=== PATIENT | female | born 1940 | race Two or more races ===

== ENCOUNTER 2023-01-05 12:51 | Inpatient (IN) | payer MEDICARE, OTHER ==
[2023-01-05] VITALS (26 sets, daily range): BP systolic 90–131; BP diastolic 40–87
[~2023-01-05] VITALS: Ht 157.5 cm; Wt 67.6 kg
[2023-01-05] MEDS ORDERED: DILTIAZEM HCL 50 MG IV ONE (13:12)
--- NOTE | 2023-01-05 13:20 | NUR ---
PARUL LOCKETT From Clinic "SOB/BLE edema xweeks. Rapid AF rate 158 BS-110
--- NOTE | 2023-01-05 13:23 | NUR ---
covid swab taken
--- NOTE | 2023-01-05 13:24 | NUR ---
blood sample otbaiend sent to lab
[2023-01-05 13:25] LABS: BASOPHILS % (AUTO) 0.5 % (0.0-2.0); HEMATOCRIT 33 % (33-45); HEMOGLOBIN 10.6 g/dL (11.5-14.8); LYMPHOCYTES # (AUTO) 0.8 K/uL (0.8-4.8); LYMPHOCYTES % (AUTO) 9.7 % (20.0-44.0); MEAN CORPUSCULAR HGB CONC 33 g/dl (31.0-36.0); MEAN CORPUSCULAR VOLUME 88 fL (82-100); MONOCYTES # (AUTO) 0.7 K/uL (0.1-1.30); MONOCYTES % (AUTO) 9.1 % (2.0-12.0); NEUTROPHILS # (AUTO) 6.4 K/uL (1.8-8.9); NEUTROPHILS % (AUTO) 79.7 % (43.0-81.0); PLATELET COUNT (AUTO) 349 K/uL (150-450); RED BLOOD CELL COUNT(AUTO) 3.72 MIL/uL (4.0-5.2)
[2023-01-05] MEDS ORDERED: DILTIAZEM HCL 25 MG IV IV ONE (13:30)
--- NOTE | 2023-01-05 13:42 | NUR ---
анна shields [phone] daughter
[2023-01-05 13:47] LABS: CALCIUM, SERUM 8.6 mg/dL (8.5-10.1); CARBON DIOXIDE 21 mmol/L (21-32); CHLORIDE 105 mmol/L (98-107); CREATININE 1.6 mg/dL (0.6-1.3); GLUCOSE 111 mg/dL (74-106); POTASSIUM 5.1 mmol/L (3.5-5.1); SODIUM SERUM 137 mmol/L (136-145); UREA NITROGEN, BLOOD 23 mg/dL (7-18)
--- NOTE | 2023-01-05 13:51 | NUR ---
CALLED NURSING SUP REGARDING PT BED
--- NOTE | 2023-01-05 13:57 | NUR ---
ROOM 254
[2023-01-05] MEDS ORDERED: AMIODARONE 450 MG in IV D5W 250 ML IV ONE (14:00)
[2023-01-05] MEDS ORDERED: AMIODARONE 150 MG in IV D5W 100 ML IV ONE (14:00)
[2023-01-05 14:04] LABS: ALANINE AMINOTRANSFERASE 23 U/L (12-78); ALBUMIN 3.2 g/dL (3.4-5.0); ALKALINE PHOSPHATASE 139 U/L (46-116); ASPARTATE AMINOTRANSFERASE 61 U/L (15-37); BILIRUBIN,DIRECT 0.5 mg/dL (0.0-0.2); BILIRUBIN,TOTAL 0.9 mg/dL (0.2-1.0); TOTAL PROTEIN, SERUM 7.1 g/dL (6.4-8.2)
[2023-01-05] MEDS ORDERED: FUROSEMIDE 40 MG/4 ML VIAL ONE (14:20)
[2023-01-05] MEDS ORDERED: FUROSEMIDE 40 MG/4 ML VIAL IV ONE (14:30)
[2023-01-05] MEDS ORDERED: PIPERACILLIN /TAZOBACTAM 3.375 G in IV D5W 50 ML IV ONE (14:30)
--- NOTE | 2023-01-05 14:33 | NUR ---
awaiting for ER MD to present the patient to the admitting MD .
[2023-01-05] MEDS ORDERED: ATOR10TA PO (15:13)
[2023-01-05] MEDS ORDERED: LOSA100T31 PO (15:13)
[2023-01-05] MEDS ORDERED: METF-442 PO (15:13)
[2023-01-05] MEDS ORDERED: GLIM4TAB37 PO (15:13)
[2023-01-05] MEDS ORDERED: LORA10TA7 PO (15:13)
[2023-01-05] MEDS ORDERED: AMLO-213 PO (15:13)
--- NOTE | 2023-01-05 15:23 | NUR ---
ok to go upstairs per admitting Max PANDYA
[2023-01-05] MEDS ORDERED: ZOLPIDEM TARTRATE 5 MG TABLET PO PRN (15:30)
[2023-01-05] MEDS ORDERED: MAG HYDROX/AL HYDROX/SIMETH 30 ML UDC PO PRN (15:30)
[2023-01-05] MEDS ORDERED: ENOXAPARIN SODIUM 30 MG/0.3 ML DISP.SYRIN SQ SCH (15:30)
[2023-01-05] MEDS ORDERED: Z GUARD REMEDY 4 OZ OINT TP PRN (15:30)
[2023-01-05] MEDS ORDERED: MAGNESIUM HYDROXIDE 30 ML UDC PO PRN (15:30)
[2023-01-05] MEDS ORDERED: ONDANSETRON HCL/PF 4 MG/2 ML VIAL IVP PRN (15:30)
--- NOTE | 2023-01-05 15:36 | NUR ---
report given to Marsha ABARCA.
--- NOTE | 2023-01-05 15:44 | NUR ---
RN NOTES RECEIVED PT FROM ER, A/Ox4, ON 2L O2 N/C , ON TELE A.FIB HR IN 130'S , FOLY INSERTED PER MD ORDER , IV SITE CDI, AMIO DRIP AT 1 MG/MIN RUNNING , RC. LOWER EXT. EDEMA AND REDNESS NOTED, SKIN PHOTO TAKEN , WOUND CONSULT ORDERED, SR UP X3, CALL LIGHT WITHIN EASY REACH , BED LOCKED AND IN LOWEST POSITION, CONTINUE TO MONITOR
--- NOTE | 2023-01-05 15:53 | NUR ---
moved to inpatient room safely oper acls protocol
[2023-01-05] MEDS ORDERED: DEXTROSE 50%-WATER 50 ML DISP.SYRIN IV PRN (16:00)
[2023-01-05] MEDS ORDERED: MULT-447 PO (16:20)
[2023-01-05] MEDS ORDERED: FLUT16SP BNOSTRILS (16:20)
[2023-01-05] MEDS: BLOOD SUGAR DIAGNOSTIC 1 EACH STRIP IN SCH ×2 (17:03→22:28)
[2023-01-05] MEDS: AMIODARONE 450 MG in IV D5W 241 ML IV PRN ×2 (17:10→21:11)
[2023-01-05] MEDS ORDERED: AMIODARONE 450 MG in IV D5W 241 ML IV PRN (17:30)
[2023-01-05] MEDS: FUROSEMIDE 40 MG/4 ML VIAL IV SCH ×2 (17:41→21:12)
--- NOTE | 2023-01-05 18:28 | NUR ---
RN NOTES PT ON AMIO AT 1MG/MIN, ON TELE A.FIB HR IN 120'S, NO DISTRESS NOTED , WILL ENDORSE TO CENTER DIRECTOR LEAD TEACHER NURSE FOR CONTINUITY OF CARE
--- NOTE | 2023-01-05 19:15 | NUR ---
RN OPENING NOTES RECEIVED PATIENT IN BED, AAO X4, O2 VIA NC AT 2L, NO SOB/DISTRESS NOTED. ON TELE MONITOR WITH A FIB HR 117, IV ACCESS ON LEFT WRIST RUNNING AMIO DRIP AT 1 MG/MIN AND TO BE TITRATED AT 0.5 MG/MIN AT 2030. ROSA CATHETER IN PLACE DRAINING CLEAR YELLOW URINE, BILATERAL LOWER EXTREMITIES EDEMA AND REDNESS NOTED. SAFETY MEASURES IN PLACE: BED LOCKED AND IN LOWEST POSITION, CALL LIGHT WITHIN REACH, SIDE RAILS UP X3.
--- NOTE | 2023-01-05 20:23 | NUR ---
STAT EKG DONE. CHUCKING AND SAWING MACHINE OPERATOR NOTIFIED WITH THE RESULT.
--- NOTE | 2023-01-05 20:30 | NUR ---
RN NOTE AMIO DRIP TITRATED TO 0.5 MG/MIN
[2023-01-05] MEDS: ENOXAPARIN SODIUM 80 MG/0.8 ML DISP.SYRIN SQ SCH (21:12)
[2023-01-05] MEDS: ZOSYN IVPB 3.375 G in IV D5W 50ml IV SCH (21:13)
[2023-01-05] MEDS: INSULIN REGULAR, HUMAN 100 UNIT/ML 3 ML VIAL SQ PRN (22:32)
--- NOTE | 2023-01-05 22:36 | NUR ---
RN NOTE PATIENT COMPLAINED OF CHEST PAIN. EKG AND TROPONIN DONE. NOTIFIED DR. DIANE. NO NEW ORDERS
[2023-01-05] MEDS: MORPHINE SULFATE INJ 2 MG/ML DISP.SYRIN IV PRN (22:47)
[2023-01-06] VITALS (56 sets, daily range): BP systolic 93–151; BP diastolic 14–97
[2023-01-06] MEDS: FUROSEMIDE 40 MG/4 ML VIAL IV SCH (01:36)
[2023-01-06] MEDS: ZOSYN IVPB 3.375 G in IV D5W 50ml IV SCH ×4 (03:05→21:12)
[2023-01-06 04:29] LABS: BASOPHILS % (AUTO) 0.5 % (0.0-2.0); EOSINOPHILS % (AUTO) 0.5 % (0.0-6.0); HEMATOCRIT 32 % (33-45); HEMOGLOBIN 10.1 g/dL (11.5-14.8); LYMPHOCYTES # (AUTO) 0.7 K/uL (0.8-4.8); LYMPHOCYTES % (AUTO) 9.5 % (20.0-44.0); MEAN CORPUSCULAR HGB CONC 32 g/dl (31.0-36.0); MEAN CORPUSCULAR VOLUME 89 fL (82-100); MONOCYTES # (AUTO) 0.6 K/uL (0.1-1.30); MONOCYTES % (AUTO) 8.2 % (2.0-12.0); NEUTROPHILS # (AUTO) 5.7 K/uL (1.8-8.9); NEUTROPHILS % (AUTO) 81.3 % (43.0-81.0); PLATELET COUNT (AUTO) 326 K/uL (150-450); RED BLOOD CELL COUNT(AUTO) 3.55 MIL/uL (4.0-5.2)
[2023-01-06 04:55] LABS: CALCIUM, SERUM 8.4 mg/dL (8.5-10.1); CARBON DIOXIDE 21 mmol/L (21-32); CHLORIDE 103 mmol/L (98-107); CREATININE 1.8 mg/dL (0.6-1.3); GLUCOSE 80 mg/dL (74-106); MAGNESIUM 2.4 mg/dL (1.8-2.4); PHOSPHORUS 5.5 mg/dL (2.5-4.9); POTASSIUM 5.3 mmol/L (3.5-5.1); SODIUM SERUM 135 mmol/L (136-145); UREA NITROGEN, BLOOD 26 mg/dL (7-18)
[2023-01-06 05:13] LABS: CHOLESTEROL 92 mg/dL (<200); HDL CHOLESTEROL 42 mg/dL (40-60); LDL 44 mg/dL (0-99); THYROID STIMULATING HORMONE 7.191 uIU/mL (0.358-3.74); TRIGLYCERIDES 57 mg/dL (30-150)
--- NOTE | 2023-01-06 06:57 | NUR ---
RN CLOSING NOTES PATIENT IN BED, ASLEEP, BUT EASY TO AROUSE, AAO X4, O2 VIA NC AT 2L, O2 SAT 100%, NO SOB/DISTRESS NOTED. ON TELE MONITOR WITH A FIB HR 105, IV ACCESS ON LEFT WRIST RUNNING AMIO DRIP AT 0.5 MG/MIN. ROSA CATHETER IN PLACE DRAINING SUDARSHAN URINE, INTACT AND PATENT. BILATERAL LOWER EXTREMITIES EDEMA AND REDNESS NOTED. ALL DUE MEDS WERE GIVEN AND NEEDS ATTENDED. SAFETY MEASURES MAINTAINED: BED LOCKED AND IN LOWEST POSITION, CALL LIGHT WITHIN REACH, SIDE RAILS UP X3. WILL ENDORSE TO ONCOMING NURSE FOR WANDA.
--- NOTE | 2023-01-06 07:10 | NUR ---
RN note Received patient in bed. Patient is alert and conscious. GCS [id number]. vehicle monitor technician showed AF HR 125/min. BP 121/76 mmHg. 0.5mcg/kg/min amiodarone running thorugh left wrist cannula, no signs of phlebitis is observed. SpO2 97% with 2L oxygen via nasal cannula. 3+ pitting lower limbs edema all the way up to thigh. Young is in place draining pinkish and clear urine. Call coto is placed within reach. Will continue monitoring and care.
--- NOTE | 2023-01-06 07:40 | NUR ---
RN note Blood glucose was 48. Patient is alert without active complaint or dizziness. Gave 2 cups of apple juice with packs of sugar added, also gave her tray of breakfast. Will recheck blood sugar.
[2023-01-06] MEDS: BLOOD SUGAR DIAGNOSTIC 1 EACH STRIP IN SCH ×6 (07:57→21:12)
[2023-01-06] MEDS: PANTOPRAZOLE 40 MG TABLET.DR PO SCH (07:57)
--- NOTE | 2023-01-06 08:11 | NUR ---
RN note After intervention, patient's blood glucose increased back to 80mg/dL. Will keep observation.
[2023-01-06] MEDS ORDERED: ASPIRIN 81 MG TAB.CHEW PO SCH (09:00)
[2023-01-06] MEDS ORDERED: FUROSEMIDE 40 MG/4 ML VIAL IV SCH (09:00)
[2023-01-06] MEDS: METOLAZONE 2.5 MG TABLET PO SCH (09:12)
[2023-01-06] MEDS: FUROSEMIDE 100 MG/10 ML VIAL IV SCH ×3 (09:12→17:49)
[2023-01-06 09:22] LABS: IRON, SERUM 20 ug/dl (50-175); TOTAL IRON BINDING CAPACITY 252 ug/dl (250-450)
[2023-01-06 09:36] LABS: FERRITIN 97 ng/mL (8-388)
--- NOTE | 2023-01-06 10:38 | NUR ---
RN note Informed Dr. Brito that IV amiodarone drip will be infused over 24hrs at 14:30 and inquired the need to switch to oral form. He said to just stop the drip and no oral form is necessary.
[2023-01-06] MEDS: INSULIN REGULAR, HUMAN 100 UNIT/ML 3 ML VIAL SQ PRN (11:36)
[2023-01-06] MEDS: DIGOXIN INJ 0.5 MG/2 ML AMPUL IV SCH ×3 (12:15→23:50)
--- NOTE | 2023-01-06 17:50 | NUR ---
RN note Blood sugar 65 mg/dL. No active complaint or altered mental status. Gave a pack of cranberry juice to patient and also her tray of food. Rechecked glucose was 80's, gave another juice. Keep observation of blood glucose.
--- NOTE | 2023-01-06 19:00 | NUR ---
RN note Received patient in bed, on high aleman's, AO x 3-4 [place] islander speaking, colleague Genny RN able to help with translation, breathing unlabored, saturation at 97% on 2L via NC, afib on the monitor, HR is 111. IV line at RFA 20g and LFA 20g patent and flushing well, with NS at tko. Young catheter draining to a clear, yellow output. Noted BLE edema and redness, BLE kept elevated. Safety measures in place, bed is locked and at lowest position. Call light within reach of patient. Will continue to monitor and reassess.
[2023-01-06] MEDS: HYDROCODONE/APAP 5/325MG TABLET PO PRN (20:11)
[2023-01-06] MEDS: ENOXAPARIN SODIUM 80 MG/0.8 ML DISP.SYRIN SQ SCH (21:13)
[2023-01-07] VITALS (20 sets, daily range): BP systolic 93–134; BP diastolic 38–91
[2023-01-07] MEDS: HYDROCODONE/APAP 5/325MG TABLET PO PRN (00:54)
[2023-01-07] MEDS: ZOSYN IVPB 3.375 G in IV D5W 50ml IV SCH ×2 (02:28→08:28)
[2023-01-07 05:06] LABS: BASOPHILS % (AUTO) 0.5 % (0.0-2.0); EOSINOPHILS % (AUTO) 11.7 % (0.0-6.0); HEMATOCRIT 34 % (33-45); HEMOGLOBIN 11.1 g/dL (11.5-14.8); LYMPHOCYTES # (AUTO) 0.5 K/uL (0.8-4.8); LYMPHOCYTES % (AUTO) 7.1 % (20.0-44.0); MEAN CORPUSCULAR HGB CONC 32 g/dl (31.0-36.0); MEAN CORPUSCULAR VOLUME 88 fL (82-100); MONOCYTES # (AUTO) 0.3 K/uL (0.1-1.30); MONOCYTES % (AUTO) 3.6 % (2.0-12.0); NEUTROPHILS # (AUTO) 5.6 K/uL (1.8-8.9); NEUTROPHILS % (AUTO) 77.1 % (43.0-81.0); PLATELET COUNT (AUTO) 356 K/uL (150-450); RED BLOOD CELL COUNT(AUTO) 3.89 MIL/uL (4.0-5.2); WHITE BLOOD COUNT (AUTO) 7.2 K/uL (4.3-11.0)
[2023-01-07 05:24] LABS: ALANINE AMINOTRANSFERASE 20 U/L (12-78); ALBUMIN 2.7 g/dL (3.4-5.0); ALKALINE PHOSPHATASE 127 U/L (46-116); ASPARTATE AMINOTRANSFERASE 57 U/L (15-37); BILIRUBIN,TOTAL 0.9 mg/dL (0.2-1.0); CALCIUM, SERUM 8.5 mg/dL (8.5-10.1); CARBON DIOXIDE 23 mmol/L (21-32); CHLORIDE 104 mmol/L (98-107); CREATININE 2.3 mg/dL (0.6-1.3); MAGNESIUM 2.4 mg/dL (1.8-2.4); POTASSIUM 4.6 mmol/L (3.5-5.1); SODIUM SERUM 137 mmol/L (136-145); TOTAL PROTEIN, SERUM 6.4 g/dL (6.4-8.2); UREA NITROGEN, BLOOD 27 mg/dL (7-18)
[2023-01-07 05:34] LABS: GLUCOSE 49 mg/dL (74-106)
--- NOTE | 2023-01-07 06:15 | NUR ---
RN NOTE Telephone call from lab regarding critical lab of 49 for glucose, finger stick done and resulted 31. D50 administered per sliding scale, accucheck repeated and revealed 128. Will cont to monitor and encourage po intake. Addendum: 01/07/23 at 0632 by ADRIAN HELLER RN Dr Bianchi was notified. farm boss Ed aware
--- NOTE | 2023-01-07 07:05 | NUR ---
RN note Patient is awake, GCS [id number], bilateral pupils 3mm DAYANNA. monitor car operator showed AF HR 105/min. SpO2 >95% with 2L oxygen via NC, RR 18/min. No respiratory distress is noted. LL edema 1+, thigh edema still 2-3+ pitting edema. Biilateral forearm IV sites are dry and intact. Young is draining light yellowish fluid. Bed is locked and placed in the lowest position. Will keep observation and monitoring.
[2023-01-07] MEDS: PANTOPRAZOLE 40 MG TABLET.DR PO SCH (07:23)
[2023-01-07] MEDS: BLOOD SUGAR DIAGNOSTIC 1 EACH STRIP IN SCH ×4 (07:23→22:35)
--- NOTE | 2023-01-07 07:58 | NUR ---
RN note Tried wean off oxygen. KEep observation of respiratory status.
[2023-01-07] MEDS: METOLAZONE 2.5 MG TABLET PO SCH (08:28)
[2023-01-07] MEDS: FUROSEMIDE 100 MG/10 ML VIAL IV SCH ×3 (08:28→15:38)
[2023-01-07] MEDS: NEOMY SULF/BACITRAC ZN/POLY 15 GM TUBE TP SCH (08:30)
[2023-01-07] MEDS: IV NS 0.9% 250 ML IV SCH (09:19)
--- NOTE | 2023-01-07 10:53 | NUR ---
RN note Clarified with Dr. Virk about the need for thoracentesis for the pleural effusion on patient. He said not for thoracentesis and can proceed with starting oral eliquis.
[2023-01-07] MEDS: DILTIAZEM HCL CD 240 MG PO SCH (11:34)
[2023-01-07] MEDS: ACETAMINOPHEN 325 MG TABLET PO PRN (11:36)
--- NOTE | 2023-01-07 11:42 | NUR ---
RN note Blood glucose 166 mg/dl, informed MIGRATORY GAME BIRD BIOLOGIST Max that patient is sensitive to insulin as her oral intake is poor-fair. He ordered not to administer insulin and continue monitoring of blood glucose.
[2023-01-07] MEDS: DIGOXIN 0.125 MG TABLET PO SCH (12:08)
[2023-01-07] MEDS: DOXYCYCLINE HYCLATE (100 MG) 100 MG TABLET PO SCH ×2 (12:08→21:56)
[2023-01-07] MEDS: APIXABAN 2.5 MG TABLET PO SCH ×2 (12:09→16:54)
[2023-01-07] MEDS: MORPHINE SULFATE INJ 2 MG/ML DISP.SYRIN IV PRN ×3 (13:21→22:53)
--- NOTE | 2023-01-07 15:52 | NUR ---
TRANSFER NOTES FROM ICU CARRIE PROCESS DESCRIPTION WRITER NOTES: RECEIVED PATENT A TRANSFER FROM ICU ACCOMPANIED BY NURSE FLORES, RIMA, VIA HOSPITAL BED. PATIENT WITH NO S/S RESPIRATORY DISTRESS, BREATHING EVEN AND UNLABORED. ON RA TOLERATING WELL WITH OXYGEN SATURATION OF 97% PATIENT IS CASS SPEAKING ONLY, BUT IS AWAKE, ALERT AND ORIENTED X 3. PATIENT WAS PLACED ON TELE MONITOR AND NOTED TO HAVE A-FIB WITH HR OF 111. NO C/O CHEST PAIN OR DISCOMFORT AT THIS TIME. PATIENT HAS SALINE LOCKS ON BOTH LEFT AND RIGHT FOREARM, BOTH INTACT, PATENT AND FLUSHES WELL WITH NO S/S INFILTRATION NOTED. ROSA CATH IN PLACE, DRAINING VIA GRAVITY WITH LIGHT YELLOW COLORED URINE, NO HEMATURIA AND NO SEDIMENTATION NOTED. ALL SAFETY MEASURES IN PLACE. BED LOCKED AND IN LOWEST POSITION WITH BED ALARM ON. CALL LIGHT WITHIN REACH. WILL CONTINUE TO MONITOR PATIENT THROUGHOUT SHIFT. V/S FOLLOWS: TEMP 98.4, RESPIRATION 22, BP 113/38.
--- NOTE | 2023-01-07 15:55 | NUR ---
RN NOTE Patient's HR is normalizing and CHF is improving, for downgrade to CARRIE. instructional technologist showed AF HR 100/min. Patient is alert without active complaint. Handover was given to RN Kaci. Patient's daughter was notified earlier for the transfer. Patient's belongings(an orange sweater and a black pair of pants) are returned to patient.
[2023-01-07] MEDS ORDERED: LORATADINE 10 MG TABLET PO PRN (18:00)
[2023-01-07] MEDS: ATORVASTATIN 10 MG TABLET PO SCH (18:08)
[2023-01-07 18:26] LABS: BILIRUBIN,URINE NEGATIVE (NEGATIVE); COLOR,URINE YELLOW (YELLOW); LEUKOCYTE ESTERASE ,URINE 1+ (NEGATIVE); NITRITE, URINE NEGATIVE (NEGATIVE); PH,URINE 5.5 (5.0-8.0); PROTEIN,URINE NEGATIVE (NEGATIVE); UGLUCOSE NEGATIVE (NEGATIVE); UROBILINOGEN,URINE 0.2 EU/dL (0.2)
--- NOTE | 2023-01-07 18:43 | NUR ---
[facility] REPAIRER CYLINDER HEADS CLOSING NOTES: PATIENT IN BED, AWAKE, ALERT, ORIENTED X 3. PATIENT WITH NO S/S RESPIRATORY DISTRESS NOTED SINCE TRANSFER. ON RA TOLERATING WELL PATIENT IN ON A-FIB WITH HR OF 98 PER TELE MONITOR. SALINE LOCKS ON BOTH LEFT AND RIGHT FOREARM ARE INTACT, PATENT AND FLUSHES WELL WITH NO S/S INFILTRATION NOTED. ROSA CATH IN PLACE, EMPTIED 850 ML OF LIGHT YELLOW COLORED URINE, NO HEMATURIA AND NO SEDIMENTATION NOTED. ALL SAFETY MEASURES IMPLEMENTED. BED LOCKED AND IN LOWEST POSITION WITH BED ALARM ON. CALL LIGHT WITHIN REACH. WILL ENDORSE TO INCOMING NURSE FOR CONTINUITY OF CARE.
[2023-01-07 18:50] LABS: CREATININE, URINE < 13.0 MG/DL (30.0-125.0); URINE SODIUM, RANDOM 118 mmol/l (40-220)
[2023-01-07 18:51] LABS: RBC,URINE 21-50 /HPF (0-2)
[2023-01-07 18:52] LABS: BACTERIA,URINE Few /HPF (None Seen)
[2023-01-07 18:53] LABS: URIC ACID CRYSTALS,URINE Moderate /HPF (None Seen)
[2023-01-07 18:54] LABS: SQUAMOUS EPITHELIAL CELL,UR Moderate /HPF (None Seen)
--- NOTE | 2023-01-07 20:00 | NUR ---
[facility]E PROSTHETIC DENTIST NOTES RECEIVED PTS IN BED A/0X3 SWISS SPEAKING ABLE TO MAKE NEEDS KNOWN V/S STABLE AFEBRILE ON TELE MONITOR AFIB HR 97 , NO S/S RESPIRATORY DISTRESS, BREATHING EVEN AND UNLABORED. ON RA TOLERATING WELL WITH OXYGEN SATURATION OF 99% , NO C/O CHEST PAIN OR DISCOMFORT AT THIS TIME. PATIENT HAS SALINE LOCKS ON BOTH LEFT AND RIGHT FOREARM, BOTH INTACT, PATENT AND FLUSHES WELL WITH NO S/S INFILTRATION NOTED. ROSA CATH IN PLACE, DRAINING VIA GRAVITY WITH LIGHT YELLOW COLORED URINE, ALL DUE MEDS GIVEN ORDERED. ALL SAFETY MEASURES IN PLACE. BED LOCKED AND IN LOWEST POSITION WITH BED ALARM ON. CALL LIGHT WITHIN REACH. WILL CONTINUE TO MONITOR PATIENT THROUGHOUT SHIFT.
--- NOTE | 2023-01-07 22:36 | NUR ---
TD RN NOTES BLOOD SUGAR AT 10PM IS 201 MG/DL NO COVERAGE GIVEN ORDER
[2023-01-08] VITALS: BP 139/90
[2023-01-08 04:00] VITALS: BP 128/80
[2023-01-08 05:42] LABS: BASOPHILS % (AUTO) 0.5 % (0.0-2.0); EOSINOPHILS % (AUTO) 1.5 % (0.0-6.0); HEMATOCRIT 37 % (33-45); HEMOGLOBIN 11.8 g/dL (11.5-14.8); LYMPHOCYTES # (AUTO) 0.8 K/uL (0.8-4.8); LYMPHOCYTES % (AUTO) 11.1 % (20.0-44.0); MEAN CORPUSCULAR HGB CONC 32 g/dl (31.0-36.0); MEAN CORPUSCULAR VOLUME 87 fL (82-100); MONOCYTES # (AUTO) 0.7 K/uL (0.1-1.30); MONOCYTES % (AUTO) 9.8 % (2.0-12.0); NEUTROPHILS # (AUTO) 5.4 K/uL (1.8-8.9); NEUTROPHILS % (AUTO) 77.1 % (43.0-81.0); PLATELET COUNT (AUTO) 425 K/uL (150-450); RED BLOOD CELL COUNT(AUTO) 4.24 MIL/uL (4.0-5.2); WHITE BLOOD COUNT (AUTO) 6.9 K/uL (4.3-11.0)
[2023-01-08] MEDS: MORPHINE SULFATE INJ 2 MG/ML DISP.SYRIN IV PRN ×2 (05:53→17:05)
[2023-01-08 06:00] LABS: ALANINE AMINOTRANSFERASE 23 U/L (12-78); ALBUMIN 2.8 g/dL (3.4-5.0); ALKALINE PHOSPHATASE 123 U/L (46-116); ASPARTATE AMINOTRANSFERASE 62 U/L (15-37); BILIRUBIN,TOTAL 0.9 mg/dL (0.2-1.0); CALCIUM, SERUM 8.9 mg/dL (8.5-10.1); CARBON DIOXIDE 28 mmol/L (21-32); CHLORIDE 99 mmol/L (98-107); CREATININE 2.2 mg/dL (0.6-1.3); GLUCOSE 198 mg/dL (74-106); MAGNESIUM 1.9 mg/dL (1.8-2.4); PHOSPHORUS 5.1 mg/dL (2.5-4.9); POTASSIUM 4.2 mmol/L (3.5-5.1); SODIUM SERUM 137 mmol/L (136-145); TOTAL PROTEIN, SERUM 6.8 g/dL (6.4-8.2); UREA NITROGEN, BLOOD 26 mg/dL (7-18)
--- NOTE | 2023-01-08 06:57 | NUR ---
td rn notes Pts remain in bed awake and responsive on room air , no sob no distress noted , c/o pain on the chest morphine 2 mg given iv p with effect will endorse to rn day shift for continuity of care.
--- NOTE | 2023-01-08 07:16 | NUR ---
[facility] FINANCIAL SYSTEMS MANAGER NOTES RECEIVED PT IN BED A/0X3. ON TELE MONITOR FOR AFIB. ON RA TOLERATING WELL. NO S/S RESPIRATORY DISTRESS. NO C/O CHEST PAIN OR DISCOMFORT AT THIS TIME. PATIENT HAS SALINE LOCKS ON BOTH LEFT AND RIGHT FOREARM, BOTH INTACT, PATENT AND FLUSHES WELL WITH NO S/S INFILTRATION NOTED. ROSA CATH IN PLACE, DRAINING VIA GRAVITY WITH LIGHT YELLOW COLORED URINE. ALL SAFETY MEASURES IN PLACE. BED LOCKED AND IN LOWEST POSITION WITH BED ALARM ON. CALL LIGHT WITHIN REACH. WILL CONTINUE TO MONITOR.
[2023-01-08] MEDS: BLOOD SUGAR DIAGNOSTIC 1 EACH STRIP IN SCH ×4 (07:48→21:07)
[2023-01-08 08:00] VITALS: BP 135/57
[2023-01-08] MEDS: DILTIAZEM HCL CD 240 MG PO SCH (08:04)
[2023-01-08] MEDS: METOLAZONE 2.5 MG TABLET PO SCH (08:04)
[2023-01-08] MEDS: DOXYCYCLINE HYCLATE (100 MG) 100 MG TABLET PO SCH ×2 (08:04→21:07)
[2023-01-08] MEDS: MULTIVITAMINS,THERAGRAN 1 UDTAB TABLET PO SCH (08:04)
[2023-01-08] MEDS: PANTOPRAZOLE 40 MG TABLET.DR PO SCH (08:04)
[2023-01-08] MEDS: APIXABAN 2.5 MG TABLET PO SCH ×2 (08:05→17:04)
[2023-01-08] MEDS: IV NS 0.9% 250 ML IV SCH (08:50)
[2023-01-08] MEDS: NEOMY SULF/BACITRAC ZN/POLY 15 GM TUBE TP SCH (09:26)
[2023-01-08] MEDS: FLUTICASONE PROPIONATE 16 GM BOTTLE NS SCH (09:28)
[2023-01-08] MEDS: FUROSEMIDE 100 MG/10 ML VIAL IV SCH ×3 (10:36→17:05)
[2023-01-08 12:00] VITALS: BP 111/48
[2023-01-08] MEDS: DIGOXIN 0.125 MG TABLET PO SCH (13:54)
[2023-01-08 16:00] VITALS: BP 114/53
[2023-01-08] MEDS: ATORVASTATIN 10 MG TABLET PO SCH (17:05)
--- NOTE | 2023-01-08 18:45 | NUR ---
CARRIE RN CLOSING NOTES PATIENT IN BED, AWAKE, ALERT, ORIENTED X 3. ON ROOM AIR WITH NO S/S RESPIRATORY DISTRESS OR SOB. IV ACCESS ON LFA AND RFA SALINE LOCK, INTACT, PATENT AND FLUSHING WELL WITH NO S/S INFILTRATION NOTED. ROSA CATH IN PLACE DRAINING LIGHT YELLOW COLORED URINE, NO HEMATURIA AND NO SEDIMENTATION NOTED. ALL SAFETY MEASURES IMPLEMENTED. BED LOCKED AND IN LOWEST POSITION WITH BED ALARM ON. CALL LIGHT WITHIN REACH. WILL ENDORSE TO ONCOMING NURSE FOR CONTINUITY OF CARE.
--- NOTE | 2023-01-08 19:30 | NUR ---
CARRIE RN OPENING NOTES RECEIVED PT IN BED A/OX3. CASS SPEAKING, ON TELE MONITOR AFIB CONTROLLED AT 91. ON RA TOLERATING WELL. NO S/S RESPIRATORY DISTRESS. PATIENT HAS SALINE LOCKS ON BOTH LEFT AND RIGHT FOREARM, BOTH INTACT, PATENT AND FLUSHES WELL WITH NO S/S INFILTRATION NOTED. ROSA CATH IN PLACE, DRAINING VIA GRAVITY WITH LIGHT YELLOW COLORED URINE. ALL SAFETY MEASURES IN PLACE. BED LOCKED AND IN LOWEST POSITION WITH BED ALARM ON. CALL LIGHT WITHIN REACH. WILL CONTINUE TO MONITOR THROUGHOUT THE SHIFT.
[2023-01-08] MEDS: HYDROCODONE/APAP 5/325MG TABLET PO PRN (19:49)
[2023-01-08 20:00] VITALS: BP 133/62
[2023-01-09] VITALS: BP 116/52
[2023-01-09 04:00] VITALS: BP 147/58
[2023-01-09] MEDS: MORPHINE SULFATE INJ 2 MG/ML DISP.SYRIN IV PRN (05:41)
--- NOTE | 2023-01-09 05:41 | NUR ---
RN NOTE PT COMPLAINTS OF PAIN AT RIGHT CHEST, FACIAL GRIMACING NOTED. MORPHINE GIVEN PRN ORDER, PLACED PT ON O2 AT 2LPM, PT TOLERATED WELL. WILL CONT TO MONITOR.
--- NOTE | 2023-01-09 06:53 | NUR ---
CARRIE RN CLOSING NOTES PT REMAINS IN BED A/OX3. CASS SPEAKING, ON TELE MONITOR AFIB CONTROLLED AT 100. ON NC AT 2LPM, TOLERATING WELL. NO S/S RESPIRATORY DISTRESS. PATIENT HAS SALINE LOCKS ON BOTH LEFT AND RIGHT FOREARM, BOTH INTACT, PATENT AND FLUSHES WELL WITH NO S/S INFILTRATION NOTED. ROSA CATH IN PLACE, DRAINING VIA GRAVITY WITH LIGHT YELLOW COLORED URINE. ALL DUE MEDS GIVEN, KEPT DRY AND CLEAN, ALL SAFETY MEASURES IN PLACE. BED LOCKED AND IN LOWEST POSITION WITH BED ALARM ON. CALL LIGHT WITHIN REACH. WILL ENDORSE TO AM SHIFT NURSE FOR CONTINUITY OF CARE.
--- NOTE | 2023-01-09 07:05 | NUR ---
RN OPENING NOTES RECEIVED PATIENT IN BED A/OX3. ITALIAN SPEAKING, ON TELE MONITOR AFIB CONTROLLED AT 100. ON NC AT 2LPM, TOLERATING WELL WITH OXYGEN SATURATION AT 100%. NO S/S RESPIRATORY DISTRESS. PATIENT HAS SALINE LOCKS ON BOTH LEFT AND RIGHT FOREARM, BOTH INTACT, PATENT AND FLUSHES WELL WITH NO S/S INFILTRATION NOTED BOTH SITES [address] IN [address], DRAINING VIA GRAVITY WITH LIGHT YELLOW COLORED URINE. SAFETY MEASURES IN PLACE. BED LOCKED AND IN LOWEST POSITION WITH BED ALARM ON. CALL LIGHT WITHIN REACH. WILL CONTINUE PLAN OF CARE AND ANTICIPATE NEEDS.
[2023-01-09 07:26] LABS: ALANINE AMINOTRANSFERASE 22 U/L (12-78); ALBUMIN 2.8 g/dL (3.4-5.0); ALKALINE PHOSPHATASE 112 U/L (46-116); ASPARTATE AMINOTRANSFERASE 77 U/L (15-37); CALCIUM, SERUM 8.6 mg/dL (8.5-10.1); CARBON DIOXIDE 32 mmol/L (21-32); CHLORIDE 97 mmol/L (98-107); CREATININE 1.8 mg/dL (0.6-1.3); GLUCOSE 96 mg/dL (74-106); MAGNESIUM 1.5 mg/dL (1.8-2.4); PHOSPHORUS 4.2 mg/dL (2.5-4.9); POTASSIUM 3.1 mmol/L (3.5-5.1); SODIUM SERUM 137 mmol/L (136-145); TOTAL PROTEIN, SERUM 6.4 g/dL (6.4-8.2); UREA NITROGEN, BLOOD 26 mg/dL (7-18)
[2023-01-09] MEDS: BLOOD SUGAR DIAGNOSTIC 1 EACH STRIP IN SCH (07:32)
[2023-01-09 07:41] LABS: BASOPHILS % (AUTO) 0.3 % (0.0-2.0); HEMATOCRIT 36 % (33-45); HEMOGLOBIN 11.5 g/dL (11.5-14.8); LYMPHOCYTES # (AUTO) 0.7 K/uL (0.8-4.8); LYMPHOCYTES % (AUTO) 8.4 % (20.0-44.0); MEAN CORPUSCULAR HGB CONC 32 g/dl (31.0-36.0); MEAN CORPUSCULAR VOLUME 86 fL (82-100); MONOCYTES # (AUTO) 0.8 K/uL (0.1-1.30); MONOCYTES % (AUTO) 9.5 % (2.0-12.0); NEUTROPHILS # (AUTO) 6.9 K/uL (1.8-8.9); NEUTROPHILS % (AUTO) 78.8 % (43.0-81.0); PLATELET COUNT (AUTO) 433 K/uL (150-450); RED BLOOD CELL COUNT(AUTO) 4.13 MIL/uL (4.0-5.2); WHITE BLOOD COUNT (AUTO) 8.8 K/uL (4.3-11.0)
[2023-01-09 08:00] VITALS: BP 129/66
[2023-01-09] MEDS: PANTOPRAZOLE 40 MG TABLET.DR PO SCH (08:13)
[2023-01-09] MEDS: DOXYCYCLINE HYCLATE (100 MG) 100 MG TABLET PO SCH (08:13)
[2023-01-09] MEDS: DILTIAZEM HCL CD 240 MG PO SCH (08:13)
[2023-01-09] MEDS: MULTIVITAMINS,THERAGRAN 1 UDTAB TABLET PO SCH (08:14)
[2023-01-09] MEDS: METOLAZONE 2.5 MG TABLET PO SCH (08:14)
[2023-01-09] MEDS: APIXABAN 2.5 MG TABLET PO SCH (08:15)
[2023-01-09] MEDS: NEOMY SULF/BACITRAC ZN/POLY 15 GM TUBE TP SCH (08:19)
[2023-01-09] MEDS: IV NS 0.9% 250 ML IV SCH (08:19)
[2023-01-09] MEDS: FLUTICASONE PROPIONATE 16 GM BOTTLE NS SCH (08:20)
[2023-01-09] MEDS ORDERED: FUROSEMIDE 40 MG TABLET PO SCH (09:00)
[2023-01-09] MEDS ORDERED: FUROSEMIDE 80 MG TABLET PO SCH (09:00)
[2023-01-09] MEDS: POTASSIUM CHLORIDE 20 MEQ TAB.PRT.SR PO SCH ×3 (09:02→11:56)
[2023-01-09] MEDS ORDERED: MAGNESIUM OXIDE 400 MG TABLET PO ONE (09:30)
[2023-01-09] MEDS ORDERED: IV NS 0.9% 250 ML IV PRN (09:41)
--- NOTE | 2023-01-09 10:06 | NUR ---
HAND OFF GIVEN TO MARCIA ABARCA FOR CONTINUATION OF CARE.
--- NOTE | 2023-01-09 10:10 | NUR ---
rn note RECEIVED PATIENT IN BED A/OX3. FRISIAN SPEAKING, ON TELE MONITOR AFIB CONTROLLED AT 100. ON NC AT 2LPM, TOLERATING WELL WITH OXYGEN SATURATION AT 100%. NO S/S of pain or discomfort. iv access on LEFT AND RIGHT FOREARM, BOTH INTACT, PATENT AND FLUSHES WELL WITH NO S/S INFILTRATION NOTED BOTH SITES [address], DRAINING VIA GRAVITY WITH LIGHT YELLOW COLORED URINE. SAFETY MEASURES IN PLACE. BED LOCKED AND IN LOWEST POSITION WITH BED ALARM ON. CALL LIGHT WITHIN REACH.
[2023-01-09 12:00] VITALS: BP 130/59
[2023-01-09] MEDS: ACETAMINOPHEN 325 MG TABLET PO PRN (14:33)
--- NOTE | 2023-01-09 14:53 | NUR ---
rnfa note pt discharged.pt left in stable condition. pt alert and oriented 3, rwandan speaking. went over discharge instructions and medications with daughter. verbalized understanding and to follow up with primary care provider in 1 week. agreed and verbalized understanding. removed tele monitor box and iv. picked up by patients daughter and escorted out by wheelchair.
== END 2023-01-09 14:30 | disposition home health service (06) | DRG 291 ==
LOC: ER 12:53 → ICU 14:29 → TELE-TD 01-07 15:48
PROVIDERS: ADMIT Nurse Practitioner Acute Care; ATTEND Nurse Practitioner Acute Care
DX: I13.0 Hypertensive heart and chronic kidney disease with heart failure and stage 1 through stage 4 chronic kidney disease, or unspecified chronic kidney disease (principal); I50.43 Acute on chronic combined systolic (congestive) and diastolic (congestive) heart failure; N17.0 Acute kidney failure with tubular necrosis; L03.115 Cellulitis of right lower limb; L03.116 Cellulitis of left lower limb; E87.20 Acidosis, unspecified; E44.1 Mild protein-calorie malnutrition; J90 Pleural effusion, not elsewhere classified; J98.11 Atelectasis; I48.91 Unspecified atrial fibrillation; Z20.822 Contact with and (suspected) exposure to COVID-19; E78.5 Hyperlipidemia, unspecified; E11.22 Type 2 diabetes mellitus with diabetic chronic kidney disease; N18.9 Chronic kidney disease, unspecified; Z79.84 Long term (current) use of oral hypoglycemic drugs; Z79.899 Other long term (current) drug therapy; E03.8 Other specified hypothyroidism; E88.09 Other disorders of plasma-protein metabolism, not elsewhere classified; R94.6 Abnormal results of thyroid function studies; S80.812A Abrasion, left lower leg, initial encounter; X58.XXXA Exposure to other specified factors, initial encounter; Y92.9 Unspecified place or not applicable; R26.2 Difficulty in walking, not elsewhere classified; I27.20 Pulmonary hypertension, unspecified; E87.5 Hyperkalemia
CPT/HCPCS: 36415; 71045-TC; 76770-TC; 80048-TC; 80053-TC; 80061-TC; 80076-TC; 81001; 82570-TC; 82728-TC; 82962-TC; 83540-TC; 83605-TC; 83735-TC; 83880; 84100-TC; 84300-TC; 84439-TC; 84443-TC; 84484-TC; 85025-TC; 85730-TC; 87040-TC; 87081-TC; 87086-TC; 93307-TC; 93970-TC; 97112-TC; 97116-TC; 97530-TC; A4223; G0378; J0282; J1160; J1650; J1815; J1940; J2270; J2543; J3490; J7030; J7050; J7060